=== PATIENT | female | born 1950 | race Two or more races ===

== ENCOUNTER 2020-12-30 18:15 | Inpatient (IN) | payer BC, MEDICARE, OTHER ==
[~2020-12-30] VITALS: Ht 165.1 cm; Wt 110.7 kg
[2020-12-30] MEDS ORDERED: MECLIZINE HCL25 MG PO (18:53)
[2020-12-30] MEDS ORDERED: AJOVY AUTO225 MG/1.5 SQ (18:54)
[2020-12-30] MEDS ORDERED: TOPIRAMATE50 MG PO (18:54)
[2020-12-30] MEDS ORDERED: OMEPRAZOLE20 MG PO (18:54)
[2020-12-30] MEDS ORDERED: INSULIN LI100 UNIT/2 SQ (18:55)
[2020-12-30] MEDS ORDERED: CLONIDINE HCL0.1 M1 PO (18:56)
[2020-12-30] MEDS ORDERED: CARTIA XT300 MG PO (18:56)
[2020-12-30] MEDS ORDERED: PROMETHAZINE HC25 M1 PO (18:56)
[2020-12-30] MEDS ORDERED: K-TAB ER20 MEQ PO (18:56)
[2020-12-30] MEDS ORDERED: VENTOLIN HFA18 GM INH (18:56)
[2020-12-30] MEDS ORDERED: NEURONTIN100 MG PO (18:57)
[2020-12-30] MEDS ORDERED: ALLERGY MEDICAT25 MG PO (18:57)
[2020-12-30] MEDS ORDERED: INCRUSE ELLI62.5 MCG IH ×2 (18:57→19:02)
[2020-12-30] MEDS ORDERED: TAKHZYRO300 MG/2 M SQ (18:57)
[2020-12-30] MEDS ORDERED: ISOSORBIDE MON120 MG PO (18:58)
[2020-12-30] MEDS ORDERED: LANTUS100 UNITS/ SUB-Q (18:58)
[2020-12-30] MEDS ORDERED: POLYETHYLENE GL17 GM PO (18:58)
[2020-12-30] MEDS ORDERED: LASIX20 MG PO (18:59)
[2020-12-30] MEDS ORDERED: SPIRIVA18 MCG INH (18:59)
[2020-12-30] MEDS ORDERED: FERROUS SULFAT325 MG PO (18:59)
[2020-12-30] MEDS ORDERED: NITROGLYCERIN0.4 MG SL (19:00)
[2020-12-30] MEDS ORDERED: HYDROCODON-ACE1 EAC8 PO (19:00)
[2020-12-30] MEDS ORDERED: ALLERGY RELIEF60 MG PO (19:00)
[2020-12-30] MEDS ORDERED: EPIN0.3P IM (19:01)
[2020-12-30] MEDS ORDERED: ALLOPURINOL100 MG PO (19:01)
[2020-12-30] MEDS ORDERED: PROCHLORPERAZIN10 MG PO (19:01)
[2020-12-30] MEDS ORDERED: ULTRAM50 MG PO (19:01)
[2020-12-30] MEDS ORDERED: FLUOCINOLONE AC TP (19:02)
[2020-12-30] MEDS ORDERED: VOLTAREN ARTHRI20 GM TP (19:02)
[2020-12-30] MEDS ORDERED: DALIRESP250 MCG PO (19:02)
--- NOTE | 2020-12-30 23:00 | NUR ---
PT ARRIVES TO FLOOR VIA STRETCHER WITH AT BEDSIDE. PT ON 3L 02 VIA NC, REPORTS NO SOB BUT SLIGHT LABORED BREATHING AND TACHYPNEA NOTED. LUNG SOUNDS DIMINISHED WITH CRACKLES IN BASES. PT C/O EPIGASTRIC PAIN AND STATES CHRONIC AND TOLERABLE. ASSESSMENT AND HX COMPLETE. PT REQUESTS TO WAIT UNTIL MIDNIGHT TO TAKE INSULIN AND SCHEDULED MEDICATION THIS IS TIME SHE TAKES AT HOME. WILL RETURN WITH CBG CHECK AND MEDS.
--- NOTE | 2020-12-31 00:11 | NUR ---
SCHEDULED ABX AND INSULIN ADMINISTERED, CBG 187. SANDWICH BOX PROVIDED PER REQUEST. WATER PROVIDED. LEFT FOR EVENING, WILL RETURN. PT ORIENTED TO ROOM AND CALL LIGHT. IN BED WATCHING TV STATES NO NEEDS.
--- NOTE | 2020-12-31 02:32 | NUR ---
IN ROOM FOR VITALS, PT BP WITHIN PARAMETERS FOR PRN HYDRALAZINE, ADMINISTERED. PT RESTING IN BED WITH EYES CLOSED. WATER REFILLED. PT STATES NO NEEDS, WILL CONTINUE TO MONITOR
--- NOTE | 2020-12-31 02:40 | NUR ---
PT CALLED THIS RN INTO ROOM FOR COUGHING EPISODE. PRODUCTIVE COUGH WITH CLEAR SPUTUM NOTED, EMESIS BAG GIVEN. PT REQUESTS NEB TX, RT IN ROOM TO PROVIDE. PT REPORTS NO OTHER NEEDS.
--- NOTE | 2020-12-31 03:07 | NUR ---
PT FINISHES NEB TX AND TRANSFERS SELF TO BSC WITH SBA. BACK TO BED WITH NO FURTHER NEEDS, STATES NEB TX WAS HELPFUL. CALL LIGHT IN REACH
--- NOTE | 2020-12-31 03:21 | NUR ---
IN ROOM TO REASSESS BP, WNL.
--- NOTE | 2020-12-31 06:11 | NUR ---
Scheduled medications administered. Pt resting in bed with eyes closed, moist snoring noted. VSS. Pt awakens to voice but is drowsy and quickly falls back to sleep. Allowed to rest at this time. Call light in reach
--- NOTE | 2020-12-31 08:03 | NUR ---
REPROT RECEIVED. PT LYING IN BED SNORING. 3L NC IN PLACE. LYING ON RIGHT SIDE. CALL LIGHT IN REACH.
--- NOTE | 2020-12-31 08:30 | NUR ---
PT WITH BLOOD SUGAR OF 420. DR ARANDA NOTIFIED. NEW ORDERS RECIEVED.
--- NOTE | 2020-12-31 10:00 | NUR ---
ASSESSMENT COMPLETED. PT SITTING UP IN CHAIR. 1+EDEMA NOTED TO BLE. LUNGS TIGHT SOUNDING WITHOUT CRACKLES HEARD. 3L NC IN PLACE. PT REPORTS SOB IS IMPROVING. HEART SOUND IS IRREGULAR. ABDOMEN DISTENDED, PT REPORTS IT IS MORE THEN NORMAL. BLOOD PRESSURE ELEVATED. MEDICAITONS ADMISNTERED (SEE MAR). WILL CONT TO MONITOR. CONSULTED WITH DR ROSI HEAD ABDOMEN AND LE EDEMA. MD REPORTS HE WILL LOOK INTO IT. STANDING WEIGHT OBTAINED AND DOCUMENTED. CALL LIGHT IN REACH. DENIES NEEDS.
--- NOTE | 2020-12-31 10:15 | NUR ---
PATIENT IN CHAIR. RN IN ROOM. VITALS AND I&O'S CHARTED. WARM WASHCLOTH GIVEN. CALL LIGHT IN REACH. NO FURTHER NEEDS AT THIS TIME.
--- NOTE | 2020-12-31 10:40 | NUR ---
IMAGING IN FOR ULTRASOUND OF RIGHT LEG
--- NOTE | 2020-12-31 11:05 | NUR ---
SPOKE WITH PATIENT IN ROOM. PATIENT UP IN CHAIR. PATIENT LIVES IN [place] WITH . THEY WERE TRAVELING FOR HIS JOB. SHE STATES THIS IS FIRST TIME SHE HAS LEFT HOME SINCE [employer] STARTED OTHER THAN OFFICE. SHE STATES SHE HAS HAD THE COVID VACCINES. THEY HAVE ADULT CHILDREN IN VARIOUS STATES. SHE DRIVES. IS DISABLED. SHE IS ON 3LNC OXYGEN CHRONICALLY WITH DIDI. SHE HAS A CPAP AT HOME, SHE DOESN'T USE IT THAT OFTEN IT "BOTHERS ME TO HAVE TO GET A DRINK OR GO TO THE BATHROOM AND TAKE THAT MASK ON/OFF". SHE SAYS HER DR HAS TALKED WITH HER ALOT ABOUT THIS AND THAT SHE COULD WITHOUT IT. SHE FOLLOW WITH HER PCP CLOSELY AND LIKES THEM. SHE HAS MULTIPLE DME PRODUCTS. CANE, 4WW, W/C, ELECTRIC SCOOTER, NEBULIZER, OXYGEN, BLOOD SUGAR SUPPLIES. SHE CANNOT THINK OF ANYTHING SHE MIGHT NEED TO DISCHARGE HOME. PATIENT FEELS SAFE TO TRAVEL AT DISCHARGE WITH . SHE DOES ASK FOR ME TO MAKE SURE THE BILLING KNOWS HER BCBS ANTHEM IS PRIMARY AND MEDICARE SECONDARY. CM WILL FOLLOW NEEDED.
--- NOTE | 2020-12-31 11:13 | NUR ---
CALLED RONEL IN ADMITTING. SHE IS UPDATING HER INSURANCE INFORMATION TO [facility].
[2020-12-31] MEDS ORDERED: DILTIAZEM 24HR120 MG PO (11:43)
[2020-12-31] MEDS ORDERED: TOPIRAMATE100 MG PO (12:35)
[2020-12-31] MEDS ORDERED: UBRELVY100 MG PO (12:36)
[2020-12-31] MEDS ORDERED: MIRTAZAPINE7.5 MG PO (12:37)
[2020-12-31] MEDS ORDERED: OCEAN104 ML NAS (12:37)
--- NOTE | 2020-12-31 12:37 | NUR ---
PT WITH BLOOD SUGAR OF ABOVE 500 REPORTED BY [address]IN[address] FARMER[address] DR ARANDA NOTIFIED AND VERBAL ORDER RECEIVED TO ADMINSTER A ONE TIME DOSE OF LANTUS [address] TO CHANGE OTHER ORDERS. SLIDING SCALE OF 13 UNITS HUMILOG AND 10 ADDITIONAL UNITS HUMILOG WITH MEAL ALSO ADMISTNERED. PT SITTING UP IN CHAIR DENIES S/SX OF HYPERGLYCEMIA. WILL RECHECK BLOODSUGAR IN [address] ORDER.
[2020-12-31] MEDS ORDERED: [UNRECOGNIZED DRUG - OTHER] SUB-Q (12:38)
[2020-12-31] MEDS ORDERED: CARTIA XT300 MG PO (12:41)
[2020-12-31] MEDS ORDERED: INCRUSE ELLI62.5 MCG INH (12:43)
[2020-12-31] MEDS ORDERED: ALBUTEROL2.5 MG/3 M INH (12:45)
[2020-12-31] MEDS ORDERED: BREO ELLIPTA 21 EACH INH (12:45)
--- NOTE | 2020-12-31 13:30 | NUR ---
BLOOD SUGAR CHECKED PER DDM ORDER. BLOOD SUGAR 487. DR ARANDA NOTIFIED.
--- NOTE | 2020-12-31 14:10 | NUR ---
MED REC COMPLETE
--- NOTE | 2020-12-31 14:32 | NUR ---
DID BLOOD SUGAR CHECK UPON RN REQUEST. BLOOD SUGAR 500 AT THIS TIME, RN NOTIFIED. VITALS AND I&O'S CHARTED. PATIENT IN CHAIR WATCHING TV. CALL LIGHT IN REACH. NO FURTHER NEEDS AT THIS TIME.
--- NOTE | 2020-12-31 14:51 | NUR ---
PT WITH BLOOD SUGAR OF 500. DR ARANDA NOTIFIED. VERBAL ORDER RECIEVED FOR 10 UNITS IV TO BE ADMINSTERED. READ BACK FOR VERIFICATION. ORDER PLACED.
--- NOTE | 2020-12-31 14:57 | NUR ---
VERBAL ORDER FROM DR ARANDA FOR INSULIN CHANGED TO 10 UNITS REGULAR INSULIN IV ONCE.
--- NOTE | 2020-12-31 15:30 | NUR ---
IV INSULIN GIVEN DILUTED IN 10ML NS IV PUSH SLOWLY OVER 5 MINUTES. PT SITTING UP IN CHAIR. CALL LIGHT AND PERSONAL ITEMS WITHIN REACH.
--- NOTE | 2020-12-31 15:45 | NUR ---
BLOOD SUGAR CHECHED 15 AFTER IV INSULIN ADMISNTERED. BS 441. DR ARANDA UPDATED.
--- NOTE | 2020-12-31 17:00 | NUR ---
PT WITH BLOOD SUGAR OF 397. DR ARANDA NOTIFIED. ORDERS TO RECHECK IN ONE HOUR. PT STILL WITH NO S/SX OF HYPERGLYCEMIA. SITTING IN CHAIR EATING DINNER. LR BOLUS COMPLETED. PT SALINE LOCKED.
--- NOTE | 2020-12-31 17:22 | EKG ---
[facility] [address] [place], [place] [address] Signed Normal sinus rhythm Normal ECG Confirmed by CASH ARANDA DO ([id number]) on 12/31/2020 5:22:24 PM Electronically Signed By: CASH ARANDA DO 12/31/20 1722 PATIENT NAME: TAMARA MCKEON Electrocardiogram DATE OF : 54 PHYSICIAN: CASH ARANDA DO REPORT #: [id number] REPORT IS CONFIDENTIAL AND NOT TO BE RELEASED WITHOUT AUTHORIZATION
--- NOTE | 2020-12-31 19:28 | NUR ---
PT WITH BLOOD SUGAR OF 464. DR ARANDA NOTIFIED. WILL PUT NEW ORDERS IN. PT REQUESTING BENADRYL. ALSO NOTIFIED.
--- NOTE | 2020-12-31 19:36 | NUR ---
BEDSIDE REPORT RECIEVED FROM SALINAS CAPONE. pt SITTING UP IN CHAIR. ICE WATER PROVIDED. IN ROOM. CBG 464, pt REQUESTING BENADRYL. SALINAS FULLER WITH PHONE CALL TO MD SAVANNAH TO PLACE ORDERS.
--- NOTE | 2020-12-31 19:50 | NUR ---
IN pt ROOM FOR SCHEDULED INSULIN ADMINISTRATION. pt EDUCATION PROVIDED. ASSESSMENT COMPLETE. pt ON 2L OXYGEN BY NC, DENIES SOB. NO ADVENTITIOUS LUNG SOUNDS AUSCULTATED. SBA WITH FWW TO RESTROOM FOR VOID AND BACK TO CHAIR. INCONTINENCE NOTED IN ATTENDS. ATTENDS PROVIDED. IN ROOM. NO ADDITIONAL REQUESTS.
--- NOTE | 2020-12-31 22:10 | NUR ---
PT UP TO BATHROOM WITH SBA. BACK TO BED, INCREASE IN SOB DURING EXERTION. BLOOD SUGAR DONE, 521/527 RESULTS. PT PRIMARY RN NOTIFIED.
--- NOTE | 2020-12-31 22:20 | NUR ---
NOTIFIED OF CBG 521. NO NEW ORDERS AT THIS TIME.
--- NOTE | 2020-12-31 23:35 | NUR ---
pt EDUCATED ON PLAN OF CARE, TRANSFER TO CCU. ON PHONE, QUESTIONS ANSWERED. RESTING IN BED. CALL LIGHT WITHIN REACH. 2L OXYGEN BY NC IN PLACE.
--- NOTE | 2021-01-01 | NUR ---
REPORT RECEIVED FROM SALINAS BLANCO. PT ARRIVED TO ROOM 126 AT 2345 BY BED. PT IS ALERT/ORIENTED, DENIES PAIN. LUNGS DIM, 3L O2 VIA NC IN PLACE, REPORTS SOB AT REST AND AUDIBLE UPPER AIRWAY WHEEZE PRESENT. HR REGULAR, PLACED ON MONITOR. BOWEL TONES ACTIVE, DENIES NAUSEA. SKIN GROSSLY INTACT, TRACE EDEMA PRESENT IN BLE. CB, INSULIN DRIP STARTED AT 8.8 UNITS/HR, VERIFIED WITH SALINAS MANCERA. IV SITES INTACT AND PATENT. DISCUSSED PLAN OF CARE WITH PT, QUESTIONS ANSWERED. CALL LIGHT WITHIN REACH.
--- NOTE | 2021-01-01 01:10 | NUR ---
CB, NO TITRATION OF INSULIN DRIP REQUIRED AT THIS TIME, VERIFIED WITH SALINAS MANCERA. PT REPORTS ITCHING, PRN BENADRYL GIVEN.
--- NOTE | 2021-01-01 01:25 | NUR ---
R.T. IN ROOM AT THIS TIME TO ADMINISTER BREATHING TREATMENT AND TO PLACE PT ON BIPAP.
--- NOTE | 2021-01-01 02:05 | NUR ---
CB, INSULIN DRIP TITRATED TO 7.2 UNITS/HR PER PROTOCOL, VERIFIED WITH SALINAS MARTIN. PT CURRENTLY RESTING IN BED AND WATCHING TV, BIPAP IN PLACE.
--- NOTE | 2021-01-01 03:13 | NUR ---
CB, INSULIN DRIP TITRATED TO 6 UNITS/HR PER PROTOCOL, VERIFIED WITH SALINAS MANCERA. PT UP TO BATHROOM WITH SBA, VOIDED 100ML AND HAD ALSO BEEN INCONTINENT IN ATTENDS, NEW ATTENDS PROVIDED. PT AMBULATED BACK TO BED AND WAS PLACED BACK ON BIPAP. DENIES FURTHER REQUESTS, CALL LIGHT WITHIN REACH.
--- NOTE | 2021-01-01 04:00 | NUR ---
CB, INSULIN DRIP TITRATED TO 5 UNITS/HR PER PROTOCOL, VERIFIED WITH CALDERON. ASSESSMENT COMPLETED. PT HAS BIPAP IN PLACE, DENIES SOB. REMAINDER OF ASSESSMENT UNCHANGED. DENIES NEEDS AT THIS TIME, CALL LIGHT WITHIN REACH.
--- NOTE | 2021-01-01 05:05 | NUR ---
CB, INSULIN DRIP TITRATED TO 3.4 UNITS/HR PER PROTOCOL, VERIFIED WITH SALINAS MANCERA.
--- NOTE | 2021-01-01 06:00 | NUR ---
CB, NO TITRATION OF INSULIN DRIP REQUIRED AT THIS TIME, VERIFIED WITH SALINAS MANCERA.
--- NOTE | 2021-01-01 07:13 | NUR ---
PT UP TO BATHROOM WITH SBA, VOIDED AND RETURNED TO BED. CB, INSULIN DRIP TITRATED TO 2.4 UNITS/HR PER PROTOCOL AND IV FLUIDS STARTED PER DEC. BREAKFAST ORDER RECEIVED AND CALLED TO KITCHEN. PT OFF BIPAP AND BACK ON 3L O2 VIA NC.
--- NOTE | 2021-01-01 08:00 | NUR ---
IN TO ASSESS PT AND CHECK BG TO TITRATE INSULIN DRIP. PT AWAKE AND ALERT SITTING UP IN CHAIR. LUNG SOUNDS DIMINISHED THROUGHOUT, SATING 99% ON 3 L NC. ASSESSMENT COMPLETE. BG 163, INSULIN DRIP REMAINS AT 2.4 UNITS/HR. PT REQUESTING BREAKFAST. ORDER CALLED. CALL LIGHT IN REACH.
--- NOTE | 2021-01-01 09:00 | NUR ---
BG 177, INSULIN DRIP REMAINS AT 2.4 UNITS/HR. PT STATES SHE IS CONTENT AND HAPPY WITH HER BREAKFAST. NO OTHER NEEDS. CALL LIGHT IN REACH.
--- NOTE | 2021-01-01 09:14 | NUR ---
v/s and I&Os done, fresh water given. pt. up in chair had breakfast, bed done. no other needs at this time. call light with in reach
--- NOTE | 2021-01-01 10:30 | NUR ---
PT UP TO BATHROOM TO VOID. TOLERATED MODERATELY WELL. VOID UNMEASURED, PT MISSED HAT. BACK TO CHAIR. CALL LIGHT IN REACH.
--- NOTE | 2021-01-01 10:30 | NUR ---
D5 1/2 NS TITRATED DOWN TO 75 MLS/HR.
--- NOTE | 2021-01-01 11:00 | NUR ---
BG 287, INSULIN DRIP TITRATED UP TO 6.3.
--- NOTE | 2021-01-01 12:00 | NUR ---
BG 308, INSULIN DRIP TITRATED UP TO 10 UNITS/HR.
--- NOTE | 2021-01-01 13:00 | NUR ---
BG 300, INSULIN DRIP REMAINS AT 10 UNITS/HR. PT EATING AND DRINKING WELL. IN ROOM. CALL LIGHT IN REACH. REMAINS UP IN CHAIR. DENIES PAIN OR NAUSEA. DID REPORT FEELING "SHAKY" EARLIER, IT HAS NOW RESOLVED.
--- NOTE | 2021-01-01 14:00 | NUR ---
BG 314, INSULIN DRIP TITRATED TO 12.5.
--- NOTE | 2021-01-01 15:00 | NUR ---
BG 268, INSULIN DRIP TITRATED TO 10.5 UNITS/HR.
--- NOTE | 2021-01-01 15:04 | NUR ---
CONSULT RECEIVED FOR NUTRITION. PATIENT HAS HAD HIGH BLOOD SUGARS WHILE TAKING STEROIDS FOR HER COPD. HER A1C IS 6.1 OF 12/31. HER IS VISITING. SHE HAS BEEN THROUGH DIABETES EDUCATION CLASSES BEFORE. SHE IS AWARE OF STARCHES, SUCH POTATOES AND RICE, AND LIMITS HER CONSUMPTION TO SMALL AMOUNTS A COUPLE TIMES A MONTH. SHE LOVES HOT CEREAL OF ANY KIND FOR BREAKFAST AND DOES NOT ADD ANY SUGAR. RARELY EATS A WHOLE SANDWICH. LIKES SOUPS, NIBBLES ON FRUIT OR RITZ OR CLUB CRACKERS DURING THE DAY. LOVES VEGGIES. DRINKS BLACK DECAF COFFEE, UNSWEETENED ICED TEA, SUGAR-FREE HOT COCOA, AND SUGAR-FREE APPLE CIDER. STATES SHE IS INTERESTED IN A "LOW-CALORIE" MENU THAT WOULD HELP HER LOSE SOME WEIGHT. I PROVIDED A [id number] CALORIE SAMPLE MENU AND A LOW-SODIUM DIABETES SNACK LIST FOR IDEAS FOR HOME. SHE DOESN'T COUNT CARBS BUT SHE IS MINDFUL OF ADDED SUGARS AND STARCHES. WILL CONTINUE TO MONITOR FOR ANY OTHER DIET/NUTRITION NEEDS.
--- NOTE | 2021-01-01 16:10 | NUR ---
Spoke with Shaina, she denies needs. States she will be here several more days. She is sob at times.
--- NOTE | 2021-01-01 17:00 | NUR ---
BG 293, INSULIN DRIP TITRATED TO 15 UNITS/HR.
--- NOTE | 2021-01-01 17:00 | NUR ---
BG 335, INSULIN DRIP TITRATED TO 21 UNITS/HR. PT REMAINS UP IN CHAIR. EATING DINNER. REMAINS IN ROOM.
--- NOTE | 2021-01-01 17:30 | NUR ---
PT INSTRUCTED TO CALL FOR RN USING CALL LIGHT IF PUMP ALARMING. THIS RN ENTERED ROOM AND PT STATES PUMP ALARMED FOR SEVERAL MINUTES. EXPLAINED THE IMPORTANCE OF INSULIN DRIP CONTINUING W/OUT INTERRUPTION. PT VERBALIZED UNDERSTANDING. CALL LIGHT IN REACH.
--- NOTE | 2021-01-01 18:00 | NUR ---
BG 336, INSULIN DRIP TITRATED TO 24 UNITS/HR. GOOD APPETITE. DRINKING FLUIDS WELL.
--- NOTE | 2021-01-01 18:45 | NUR ---
PT AMBULATORY TO BR, VOID UNMEASURED AND PT ALSO HAD SOILED ATTENDS. CHANGED AND PT WIPED DOWN. PT BACK TO BED. BG 344 AND TITRATED UP TO 27 UNITS/HR. PT CONTINUES TO DENY PAIN OR NAUSEA. BLE ELEVATED W/ TRACE EDEMA. CALL LIGHT IN REACH.
--- NOTE | 2021-01-01 18:45 | NUR ---
DR. ARANDA CALLED AND NOTIFIED OF PT BG TRENDS. ORDERS FOR COMPUTER GRAPHIC DESIGNER TO GO AHEAD AND GIVE 70 UNITS OF SCHEDULED LANTUS. D/T BG REMAINING HIGH. COMPUTER GRAPHIC DESIGNER RN'S NOTIFIED.
--- NOTE | 2021-01-01 20:30 | NUR ---
SHIFT REPORT RECEIVED FROM SALINAS BARRAZA. ASSESSMENT COMPLETED AT THIS TIME. PT DENIES PAIN AND NAUSEA. REPORTS DYSPNEA WITH EXERTION, REMAINS ON 3L O2 VIA NC. DR. ARANDA CALLED FOR REQUEST OF PRJac COUGH MEDICINEMD TO PUT IN ORDERS. AT 1999 CB, NO INSULIN DRIP TITRATION REQUIRED, NEW BAG HUNG @ RATE OF 27 UNITS/HR. 70 UNITS LANUS ALSO GIVEN PER . BOTH VERIFIED W/ SALINAS MANCERA. IV SITES INTACT AND PATENT. 1+EDEMA NOTED TO BLE. PT DENIES FURTHER REQUESTS AT THIS TIME, CALL LIGHT WITHIN REACH.
--- NOTE | 2021-01-01 21:06 | NUR ---
CB, INSULIN DRIP TITRATED TO 30 UNITS/HR, VERIFIED WITH SALINAS PUENTE. PT GIVEN PRN ROBITUSSIN FOR COUGH. R.T. IN TO GIVE BREATHING TREATMENT.
--- NOTE | 2021-01-01 22:04 | NUR ---
CB, INSULIN DRIP TITRATED TO 25 UNITS/HR PER PROTOCOL, VERIFIED WITH SALINAS MANCERA.
--- NOTE | 2021-01-01 22:34 | NUR ---
PT CALLED TO USE BATHROOM, UP WITH SBA FOR CORD MANAGEMENT. VOIDED, UNMEASURED. PT BACK TO BED, REQUESTS SANDWICH BOX FOR SNACK. FRESH ICE WATER PROVIDED.
--- NOTE | 2021-01-01 23:11 | NUR ---
CB, NO TITRATION OF INSULIN DRIP REQUIRED AT THIS TIME. NEW BAG OF INSULIN HUNG, VERIFIED WITH SALINAS MANCERA.
--- NOTE | 2021-01-02 00:12 | NUR ---
CB, INSULIN DRIP TITRATED TO 33 UNITS/HR PER PROTOCOL, VERIFIED WITH SALINAS MANCERA. PT UP TO BATHROOM TO VOID, IS VERY DYSPNIC WITH EXERTION. ASSESSMENT COMPLETED, UNCHANGED AT THIS TIME. IV FLUIDS PUT ON HOLD UNTIL BLOOD SUGARS ARE LESS THAN 200. PT DENIES FURTHER REQUESTS AT THIS TIME.
--- NOTE | 2021-01-02 00:25 | NUR ---
R.T. IN ROOM TO ADMINISTER BREATHING TREATMENT AND PLACE PT ON BIPAP.
--- NOTE | 2021-01-02 02:04 | NUR ---
CB, INSULIN DRIP TITRATED TO 23.1 UNITS/HR PER PROTOCOL, VERIFIED WITH SALINAS PUENTE. BIPAP REMAINS IN PLACE, PT RESTING COMFORTABLY.
--- NOTE | 2021-01-02 03:03 | NUR ---
CB, INSULIN TITRATED TO 15.4 UNITS/HR AND NEW BAG OF INSULIN HUNG, VERIFIED WITH SALINAS MANCERA. PT NEEDED TO USE BATHROOM, BUT REQUESTED TO USE BEDPAN AT THIS TIME. VOIDED 250ML. PT DENIES FURTHER REQUESTS.
--- NOTE | 2021-01-02 04:07 | NUR ---
CB, INSULIN DRIP TITRATED TO 9 UNITS/HR PER PROTOCOL, VERIFIED WITH SALINAS MANCERA. RE-STARTED IV FLUIDS NOW THAT SUGARS ARE BELOW 200. ASSESSMENT COMPLETED-SEE DOCUMENTATION. PT DENIES COMPLAINTS OR REQUESTS, CALL LIGHT WITHIN REACH.
--- NOTE | 2021-01-02 04:15 | NUR ---
R.T. IN TO GIVE BREATHING TREATMENT.
--- NOTE | 2021-01-02 05:14 | NUR ---
CB, TURNED OFF INSULIN DRIP AT THIS TIME, VERIFIED WITH SALINAS MANCERA. IV FLUIDS CONTINUE TO INFUSE. PT REQUESTED BEDPAN, VOIDED 300ML AT THIS TIME.
--- NOTE | 2021-01-02 06:08 | NUR ---
CB, INSULIN DRIP REMAINS OFF AND IV FLUIDS CONTINUE TO INFUSE. PT PROVIDED WITH SOME ORANGE JUICE AND CRACKERS.
--- NOTE | 2021-01-02 07:02 | NUR ---
CB, INSULIN DRIP REMAINS OFF AT THIS TIME. PT UP TO BATHROOM, HAD BEEN INCONTINENT OF SMALL AMOUNT OF URINE AND ALSO VOIDED 200ML. BREAKFAST ORDER RECEIVED AND CALLED TO KITCHEN.
--- NOTE | 2021-01-02 08:31 | NUR ---
IN PATIENT'S ROOM FOR 0800 CBG WHICH WAS 112. INSULIN GTT REMAINS OFF. PATIENT STATES SHE IS TIRED TODAY, BUT OVERALL FEELING BETTER. PATIENT STATES SHE WOULD LIKE TO STAY IN BED THIS AM SHE WAS "UP IN THAT CHAIR FROM 0800 UNTIL 1000 AT NIGHT, AND TODAY SHE'D LIKE TO REST. " ASSESSMENT COMPLETE. LUNGS ARE CLEAR ANTERIORLY. RT NOW IN ROOM FOR AM NEB TX.
--- NOTE | 2021-01-02 08:44 | NUR ---
v/s and I&Os done, linens changed, pt. washed, breakfast given. pt. sitting up in bed. OIL FIELD PUMPER assisted pt to use bathroom. no other needs at this time. call light within reach
--- NOTE | 2021-01-02 11:30 | NUR ---
In to speak with pt, she is sleeping soundly. Did not awaken. No change in plan for dc to go home with spouse.
--- NOTE | 2021-01-02 12:30 | NUR ---
ASSESSMENT COMPLETE. PATIENT UP IN CHAIR EATING HER LUNCH. SLIDING SCALE COVERAGE OF HUMALOG GIVEN.W ILL CONTINUE TO MONITOR BLOOD SUGARS. INSULIN GTT HAS REMAINED OFF SINCE 0500 AND D5 1/2 NS WAS TURNED OFF AT 1100. PATIENT STATES OVERALL SHE IS FEELING BETTER, BUT THAT SHE STILL HAS SHORTNESS OF BREATH WITH MUCH ACTIVITY. PT ENDORSES THAT THIS IS MUCH BETTER THAN IT HAS BEEN OVER THE LAST 3 WEEKS. PATIENT STAES, "THE DOCTOR SAYS I'LL BE ABLE TO GO HOME MAYBE TOMORROW, AND IT WILL STILL TAKE ME A COUPLE DAYS TO GET HOME." WILL CONTINUE TO MONITOR.
--- NOTE | 2021-01-02 16:00 | NUR ---
VITALS AND ASSESSMENT COMPLETE. PT REMAINS UP IN CHAIR AND DOING WELL. DINNER ORDERED FOR PATIENT. PATIENT ON PHONE WITH FAMILY. CONTINUE TO MONITOR.
--- NOTE | 2021-01-02 18:51 | NUR ---
PATIENT SITTING UP IN CHAIR, EATING DINNER AT THIS TIME. CBG WAS 322 AT 1800 AND GIVEN 14 UNITS PER SS INSULIN. PT UP TO BATHROOM TO VOID. LINENS CHANGED AND NEW GOWN PROVIDED. PT'S HAS RETURNED FROM HIS TRIP TO [place] AND IN ROOM WITH PATIENT. CAREGIVER TRAY PROVIDED FOR HIM. SP02 REMAINS 99-100% ON 3 L NC. CBG TO BE CHECKED AGAIN AT BEDTIME. PT AGAIN REPORTS THAT SHE IS OVERALL FEELING BETTER.
--- NOTE | 2021-01-02 20:55 | NUR ---
SHIFT REPORT RECEIVED FROM SALINAS MILLARD. ASSESSMENT COMPLETED AT THIS TIME. LUNGS CLEAR/DIM, 3L O2 VIA NC IN PLACE, PT BECOMES DYSPNIC WITH ACTIVITY. HR REGULAR. BOWEL TONES ACTIVE, DENIES NAUSEA. SKIN GROSSLY INTACT, TRACE EDEMA NOTED IN BLE. IV SITES INTACT, PATENT, AND SALINE LOCKED. PT UP TO BATHROOM, VOIDED AND RETURNED TO CHAIR. CB, DR. OLIVER NOTIFIED PER PROTOCOL, ADMINISTERED 13 UNITS HUMALOG AND 40 UNITS LANTUS ADMINISTERED, VERIFIED WITH SALINAS ORANTES. PLAN TO RECHECK CBG AT ~0200. PRN ROBITUSSIN GIVEN FOR COUGH. R.T. IN ROOM NOW TO GIVE BREATHING TREATMENT AND CPT. CALL LIGHT WITHIN REACH.
--- NOTE | 2021-01-02 22:49 | NUR ---
PT CALLED TO USE BATHROOM, VOIDED AND IS NOW IN BED. PT REQUESTS SNACK AROUND [phone]. DENIES FURTHER REQUESTS AT THIS TIME. PT'S SPENDING NIGHT ON SOFA.
--- NOTE | 2021-01-03 00:57 | NUR ---
PT GIVEN SANDWICH BOX, PER REQUEST. CBG DONE PRIOR TO EATIN. ASSESSMENT COMPLETED AND UNCHANGED. PT UP TO BATHROOM TO VOID AND THEN BACK TO BED. DENIES FURTHER REQUESTS AT THIS TIME, CALL LIGHT WITHIN REACH.
--- NOTE | 2021-01-03 01:21 | NUR ---
PT CALLED TO USE BATHROOM, UP INDEPENDENTLY ONCE I UNPLUGGED CORDS. VOIDED AND RETURNED TO BED. DENIES FURTHER REQUESTS.
--- NOTE | 2021-01-03 03:43 | NUR ---
PT CALLED TO USE BATHROOM, AMBULATED TO BATHROOM, VOIDED AND RETURNED TO BED. PT ALSO CHANGED ATTENDS DUE TO INCONTINENCE AND PERFORMED OWN PERICARE. ASSESSMENT COMPLETED AND UNCHANGED. PT SOB WITH ACTIVITY, OFFERED TO PLACE PT ON BIPAP, BUT PT REFUSED, REMAINS ON 3L AND SPO2 95-99%. PT DENIES REQUESTS, CALL LIGHT WITHIN REACH.
--- NOTE | 2021-01-03 06:15 | NUR ---
PT CALLED TO USE BATHROOM, UP WITH SBA FOR CORD MANAGEMENT. VOIDED AND RETURNED TO BED. PT PROVIDED WITH PRN ROBITUSSIN PER REQUEST FOR COUGH. PT CONTINUES TO FEEL DYSPNIC WITH ACTIVITY, 3L O2 REMAINS IN PLACE. PT DENIES REQUESTS, CALL LIGHT WITHIN REACH.
--- NOTE | 2021-01-03 07:30 | NUR ---
PATIENT SHIFT REPORT RECIEVED FROM MEDIA SERVICES DIRECTOR RN. PATIENT RESTING IN BED AT THIS TIME WITH HER SIGNIFICANT OTHER AT THE BEDSIDE. PATIENT CALLS APPROPRIATELY. PER REPORT PATIENT ON HOME O2 OF 3L NC. WILL CONTINUE TO CLOSELY MONITOR.
--- NOTE | 2021-01-03 08:45 | NUR ---
PATIENT UP EATING BREAKFAST. PATIENT AWAKENED WITH A HEADACHE. PATIENT DENIES WANTING TYLENOL. ENCOURAGED PATIENT TO EAT HER BREAKFAST CAUSE IT COULD BE FROM HER BLOOD SUGAR DROPPING TO THE LOWER 100'S FROM 300'S. PATIENT DENIES ANY OTHER NEEDS AT THIS TIME. ORDERES PATIENTS SO BREAKFAST. PATIENT ON 3L NC. WILL CONTINUE TO CLOSELY MONITOR.
--- NOTE | 2021-01-03 09:20 | NUR ---
MORNING MEDICATIONS GIVEN AND ASSESSMENT COMPLETED.PATIENT REPORTS SOME SOB WITH ACTIVITY, BUT NONE AT REST. PATIENT SITTING UP AT THE BEDSIDE. PATIENT AND HER SIGNIFICANT OTHER ARE VERY TALKATIVE. BREATH SOUNDS ARE COARSE. PATIENT HAS AN OCCASIONAL COUGH THAT IS NONPRODUCTIVE AT THIS TIME. EDEMA NOTED IN BLE. RASCH IN TO SEE PATIENT. PATIENT AGREEABLE TO STAYING ANOTHER DAY AND WILL TRANSFER TO THE MEDICAL UNIT TODAY. NO OTHER NEEDS AT THIS TIME. WILL CONTINUE TO CLOSELY MONITOR.
--- NOTE | 2021-01-03 10:59 | NUR ---
PATIENT WORKING WITH PHYSICAL THERAPY AT THIS TIME. NO OTHER NEEDS AT THIS TIME. WILL CHECK BACK IN WITH PATIENT AFTER THERAPY.
--- NOTE | 2021-01-03 11:30 | NUR ---
MERLYN RN RESUMED CARE OF PATIENT AT THIS TIME. UPDATED ON CURRENT PLAN OF CARE AND REPORT GIVEN. ALL QUESTIONS ANSWERED. WILL CONTINUE TO CLOSELY MONITOR.
--- NOTE | 2021-01-03 13:00 | NUR ---
ASSESSMENT + CBG + MED PASS pt assessment complete, lungs dim in the bases, difficult to hear. pt reports some mild "discomfort" in her left side "from leaning on the chair". pt able to reposition self in the chair. pts CBG was 196, 5 units added to scheduled 5units per sliding scale orders, this verified with Digna NIÑO. pt able to get med without difficulty. pt denies other needs at this time. table and call light within reach. at bedside.
--- NOTE | 2021-01-03 14:00 | NUR ---
ROUNDING pt denies pain and nausea at this time. pt reports wanting to nap in the bed. pt able to stand and transfer from chair to bed at this time. pt in bed, table and call light within reach. pt and her conversing pleasantly with me at this time.
--- NOTE | 2021-01-03 14:20 | NUR ---
Spoke pepito Merritt and her spouse. Plan to dc to their home in [place]. Will take route with [facility] available on their [address].
--- NOTE | 2021-01-03 17:30 | NUR ---
CBG + MD CALL + DINNER pts CBG was 434, 13 units of insulin ordered per sliding scale plus the 5 units per meal. MD Carter notified of pts CBG and ordered to give a total of 20units before dinner. 2 units added to the rest, a total of 20units insulin given before dinner as ordered. pt able to take med without difficulty. pt and in room having dinner, table and call light within reach.
--- NOTE | 2021-01-03 18:00 | NUR ---
ROUNDING pt in bed, sitting upright having dinner. pts in room, also having dinner at this time. table and call light within reach.
--- NOTE | 2021-01-03 19:29 | NUR ---
REPORT RECEIVED FROM ZAHIRA RN, WILL CONTINUE PLAN OF CARE.
--- NOTE | 2021-01-03 20:24 | NUR ---
THIS RN IN TO ASSESS PT. PT LAYING IN BED WATCHING TV ALERT AND ORIENTED X 3. PT'S PARTNER IN ROOM WATCHING TV WELL. PT ON 3L O2 NC, RESPIRATIONS SEEM LABORED. PT STATES HER BREATHING HAS BEEN IMPROVING AND IS BETTER THEN BEFORE. PT SPO2 AT 99% WHILE ON THE 3L O2. PT BLOOD GLUCOSE CHECKED AND WAS 431, DR. OLIVER NOTIFIED. NO NEW ORDERS GIVEN ASIDE FROM SCHEDULED INSULIN. PT GIVEN 13 UNITS OF SLIDING SCALE INSULIN ALONG WITH SCHEDULED MEDICATIONS AND PRN ROBITUSSIN FOR COUGH. PT ASSESSED, VITALS TAKEN. PT REPORTS NO FURTHER NEEDS AT THIS TIME, WILL CONTINUE PLAN OF CARE. CALL LIGHT IN REACH, BED IN LOWEST POSITION, PARTNER AT BEDSIDE, PT ON 3L O2 NC.
--- NOTE | 2021-01-04 00:24 | NUR ---
THIS RN RESPONDED TO PT CALL LIGHT. PT LAYING IN BED AWAKE ON 3L O2 NC. PT STATED THAT SHE NEEDED TO USE THE BATHROOM. PT ABLE TO GET OUT OF BED AND WALK TO BATHROOM UNASSISTED AND BACK TO BED. WEAK GAIT NOTED, PT STATED SHE FELT SLIGHTLY LIGHTHEADED BUT THAT IT WAS MUCH BETTER THAN BEFORE. LABORED BREATHING NOTED WITH EXERTION AT THIS TIME WELL. PT NOW BACK IN BED AND ASKED FOR A SANDWICH BOX. SANDWICH BOX PROVIDED TO PT AT THIS TIME WELL. PT REPORTS NO FURTHER NEEDS AT THIS TIME, WILL CONTINUE PLAN OF CARE. CALL LIGHT IN REACH, BED IN LOWEST POSITION, PT'S PARTNER IN ROOM SLEEPING IN FOLDOUT BED.
--- NOTE | 2021-01-04 02:13 | NUR ---
RESPONDED TO PT CALL LIGHT. PT AWAKE IN BED AND STATED SHE HAD TO USE THE BATHROOM. PT AGAIN ABLE TO GET UP, GO TO BATHROOM, AND GET BACK INTO BED WITHOUT ASSISTANCE. PT WAS SOB WITH EXERTION AND NEEDED A FEW MINUTES TO CATCH HER BREATH ONCE IN THE BED. PT DENIED LIGHTHEADEDNESS AT THIS TIME. PT GIVEN ICE PER HER REQUEST AND REPORTS NO FURTHER NEEDS WHEN ASKED. PT ON 3L O2 NC, CALL LIGHT IN REACH, BED IN LOWEST POSITION, PARTNER IN ROOM SLEEPING IN FOLDOUT BED. WILL CONTINUE PLAN OF CARE.
--- NOTE | 2021-01-04 04:40 | NUR ---
RESPONDED TO PT CALL LIGHT, PT SITTING UP IN BED AWAKE AND NEEDED TO USE THE BATHROOM. PT ON 3L O2 NC, AND WAS ABLE TO WALK OVER TO BATHROOM TO USE IT AND BACK WITHOUT ASSISTANCE. PT STILL SOB WIT EXERTION, PT STATES THAT SHE NORMALLY GETS SOB. PT DENIES DIZZINESS OR LIGHTHEADEDNESS. VITALS TAKEN, ASSESSMENT COMPLETE. PT REPORTS NO FURTHER NEEDS AT THIS TIME AND STATES SHE WILL BE GOING BACK TO SLEEP. CALL LIGHT IN REACH, BED IN LOWEST POSITION, WILL CONTINUE PLAN OF CARE.
--- NOTE | 2021-01-04 06:56 | NUR ---
THIS RN IN TO CHECK ON PT. PT WAS AWAKE SITTING AT THE SIDE OF THE BED. PT HAD GONE TO THE BATHROOM WITH THE HELP OF HER PARTNER IN THE ROOM. PT REPORTED FEELING SOB BUT NO LIGHTHEADEDNESS OR DIZZYNESS. PT REPORTS NO FURTHER NEEDS AT THIS TIME WHEN ASKED, WILL CONTINUE PLAN OF CARE. CALL LIGHT IN REACH, BED IN LOWEST POSITION, PT ON 3L O2 NC.
--- NOTE | 2021-01-04 07:30 | NUR ---
PATIENT SHIFT REPORT RECIEVED FROM NATURALIST RN. PATIENT RESTING IN BED WITH HER SIGNIFICANT OTHER AT THE BEDSIDE. PATIENT CALLS APPROPRIATELY. WILL CONTINUE TO MONITOR.
--- NOTE | 2021-01-04 08:20 | NUR ---
THIS RN IN TO GET BREAKFAST ORDER. PATIENT UP TO BATHROOM AT THIS TIME. PATIENT DOES HAVE SOME SOB WITH EXERTION, BUT STATES THIS IS PRETTY CLOSE TO MY BASELINE. RT IN TO SEE PATIENT. WILL CONTINUE TO CLOSELY MONITOR.
--- NOTE | 2021-01-04 09:00 | NUR ---
Checked with pt and spouse how much oxygen they have with them for return trip to [place]. They feel their portable 02 concentrator failed. Discussed this only provides 3L of 02, if they were above this it probably wasn't enough. They use a portable concentrator, a regular size concentrator, portable tanks. Spouse will check the truck to determine how many portable tanks they have available for return trip.
--- NOTE | 2021-01-04 09:30 | NUR ---
PATIENTS ASSESSMENT COMPLETED. PATIENT SITTING UP IN BED EATING BREAKFAST. PATIENTS BS WAS 92 THIS AM WILL GIVE INSULIN ONCE PATIENT HAS EATEN SOME OF HER BREAKFAST. PATIENT WILL ONLY GET THE MEAL TIME INSULIN PER ORDERS. PATIENT AGREEABLE TO PLAN OF CARE. UPDATED THAT PER MD PATIENT MAY GET TO GO HOME TODAY. AT THE BEDSIDE. JI SPOKE WITH HER ABOUT OXYGEN TANKS FOR TRAVELING. NO OTHER NEEDS AT THIS TIME. WILL CONTINUE TO CLOSELY MONITOR.
--- NOTE | 2021-01-04 10:30 | NUR ---
3 of their 4 tanks are empty and he is placing the last tank in the travel bag for use on dc. They use [facility]. Called and spoke with Isaias and they are deliving 02 to [place] today and will bring 4 tanks for pt to use on trip home. Pt will make her own follow up appt. States she had a telehealth appt with her pcp yesterday and they are aware she has been hospitalized. Pt and spouse will return to [place], [place] today through [place]. [place] remain close to hospitals.
[2021-01-04] MEDS ORDERED: PREDNISONE20 MG PO (10:34)
--- NOTE | 2021-01-04 10:43 | NUR ---
PT ABLE TO [place] 100% OF BREAKFAST. MEALTIME INSULIN GIVEN ONLY AFTER PT FINISHED MEAL BLOOD GLUCOSE WAS BELOW 100 PRIOR TO MEAL.
--- NOTE | 2021-01-04 11:48 | NUR ---
PATIENT RESTING IN BED AT THIS TIME. DIDI CAME IN AND REPLACED PATIENTS EMPTY TANKS. SPOKE WITH PATIENT ABOUT DISCHARGE PLAN. THEY WILL BE READY TO DISCHARGE AFTER LUNCH TIME FRAME. ALL QUESTIONS ANSWERED. NO OTHER NEEDS AT THIS TIME. WILL CONTINUE TO CLOSELY MONITOR.
--- NOTE | 2021-01-04 13:11 | NUR ---
PATIENT FINISHED WITH LUNCH. IVS DCD PER PROTOCOL. PATIENT UP TO THE BATHROOM TO WASH HER FACE AND PUT HER CLOTHES ON. PATIENTS SCOOTER IS IN AT THE BEDSIDE. WILL BE IN TO REVIEW DISCHARGE PAPERWORK AFTER PATIENT IS FINSIHED. NO OTHER NEEDS AT THIS TIME.
--- NOTE | 2021-01-04 14:14 | NUR ---
ALL DISCHARGE INSTRUCTIONS PROVIDED TO PATIENT AND HER . NO FURTHER QUESTIONS AT THIS TIME. GATHERED ALL BELONINGS AND BROUGHT PATIENTS OXYGEN AND SCOOTER IN FOR PATIENT. ASSISTED PATIENT ONTO SCOOTER AND CHANGED OXYGEN TO HER TANK. ALL BELONGINGS SENT WITH PATIENT. NO OTHER NEEDS AT THIS TIME. ASSISTED PATIENT OUT OF CCU.
== END 2021-01-04 14:10 | disposition home or self-care (01) | DRG 189 ==
LOC: ED 18:15 → MS 22:09 → CCU 12-31 23:50
PROVIDERS: ADMIT Student in an Organized Health Care Education/Training Program; ATTEND Student in an Organized Health Care Education/Training Program
DX: J96.21 Acute and chronic respiratory failure with hypoxia (principal); J44.1 Chronic obstructive pulmonary disease with (acute) exacerbation; I50.9 Heart failure, unspecified; K76.0 Fatty (change of) liver, not elsewhere classified; J45.909 Unspecified asthma, uncomplicated; E11.65 Type 2 diabetes mellitus with hyperglycemia; I25.10 Atherosclerotic heart disease of native coronary artery without angina pectoris; T38.0X5A Adverse effect of glucocorticoids and synthetic analogues, initial encounter; I11.0 Hypertensive heart disease with heart failure; Z91.013 Allergy to seafood; Z88.8 Allergy status to other drugs, medicaments and biological substances; Z87.891 Personal history of nicotine dependence; Z91.018 Allergy to other foods; Z79.899 Other long term (current) drug therapy; Z79.4 Long term (current) use of insulin; Z86.711 Personal history of pulmonary embolism; Z86.718 Personal history of other venous thrombosis and embolism
CPT/HCPCS: 36415; 36600; 71045; 71260; 80048; 80053; 82803; 83036; 83735; 83880; 84484; 85025; 85379; 93005; 93010; 93971; 94640; 94660; 94667; 94668; 94760; 97110; 97162; C9803; J1650; J1815; J2930; J7042; J7121; J7512; Q9967; U0003